=== PATIENT | female | born 1965 | race Caucasian/White ===

== ENCOUNTER 2020-10-01 15:59 | Emergency (ER) | payer OTHER ==
[~2020-10-01] VITALS: Ht 165.1 cm; Wt 95.7 kg
[~2020-10-01 15:59] MED LIST: CLONIDINE HCL0.2 M2; IBUPROFEN 800800 M1 PO; PRILOSEC 20 MG20 MG; XANAX XR1 MG
[2020-10-01] MEDS ORDERED: TOPROL XL100 MG PO (16:19)
[2020-10-01] MEDS ORDERED: AMIODARONE HCL400 MG PO (16:20)
[2020-10-01] MEDS ORDERED: ASA81BEC PO (16:20)
[2020-10-01] MEDS ORDERED: IRON18 M1 PO (16:20)
[2020-10-01] MEDS ORDERED: VITAMIN D31 ML (16:20)
[2020-10-01] MEDS ORDERED: LASIX 40 MG TAB40 MG PO (16:20)
[2020-10-01] MEDS ORDERED: BISOPROLOL FUMA10 MG PO (16:21)
[2020-10-01 16:41] LABS: ABSOLUTE BASOPHILS 0.1 thou/uL (0.0-0.2); ABSOLUTE EOSINOPHILS 0.4 thou/uL (0.0-0.7); ABSOLUTE MONOCYTES 0.5 thou/uL (0.0-1.2); ABSOLUTE NEUTROPHILS 3.1 thou/uL (1.6-8.1); BASOPHILS 1.1 %; EOSINOPHILS 6.7 %; HEMATOCRIT 39.7 % (37.0-47.0); LYMPHOCYTES 32.7 %; MCH 28.9 pg (26.0-34.0); MCHC 32.8 g/dL (28.0-37.0); MONOCYTES 8.4 %; MPV 7.2 fl. (7.2-11.1); NUCLEATED RBCS 0 /100WBC; PLATELET COUNT* 246 thou/uL (150-400); POLYS 51.1 %; RBC 4.52 mil/uL (4.20-5.00); RDW-CV 15.9 % (10.5-14.5); WBC 6.1 thou/uL (4.0-11.0)
[2020-10-01 16:51] LABS: CALCIUM 8.7 mg/dL (8.5-10.1); CREATININE 1.4 mg/dL (0.6-1.3); POTASSIUM 3.9 mmol/L (3.5-5.1)
[2020-10-01 17:02] LABS: ALBUMIN 3.3 g/dL (3.4-5.0); TOTAL BILIRUBIN 0.1 mg/dL (<0.1-1.0); TOTAL PROTEIN 7.3 g/dL (6.4-8.2)
[2020-10-01 17:42] LABS: URINE BILIRUBIN NEGATIVE (Negative); URINE BLOOD NEGATIVE (Negative); URINE CLARITY CLEAR; URINE COLOR YELLOW; URINE GLUCOSE-RANDOM NEGATIVE (Negative); URINE KETONES NEGATIVE (Negative); URINE LEUKOCYTES-REFLEX NEGATIVE (Negative); URINE NITRITE-REFLEX NEGATIVE (Negative); URINE PROTEIN NEGATIVE (Negative); URINE SPECIFIC GRAVITY 1.015 (1.005-1.030); URINE UROBILINOGEN 0.2 E.U./dl (0.2-1.0)
[2020-10-01 19:08] VITALS: BP 145/95
--- NOTE | 2020-10-02 09:03 | EKG ---
[place] [address] ELECTROCARDIOGRAM REPORT Name: MAYURI SHAFFER Room: [facility]#: [id number] Admission: 10/01/20 Attend Phys: Discharge: 10/01/20 Date of : 63 Date of Service: 10/01/201801 Report #: [id number] THIS REPORT FOR: //name// [facility] ED Test Date: 2020-10-01 Test Time: 18:02:27 Pat Name: MAYURI SHAFFER Department: Room: Gender: Job Coach: CD : 1965 Requested By: Mary Diamond Order Number: [id number] MD: Zhang Sue Measurements Intervals [place] Rate: 74 P: 41 VT: 176 QRS: 37 QRSD: 186 T: 193 QT: 436 QTc: 484 Interpretive Statements Sinus rhythm Probable left atrial enlargement IVCD, consider atypical RBBB ST-T wave changes, consider ischemia Anterior Q waves, possibly due to LVH Artifact in lead(s) II,III,aVR,aVL,aVF and baseline wander in lead(s) II,III,aVR,aVL,aVF No previous ECG available for comparison Electronically Signed On 10-02-2020 9:03:37 CDT by Zhang Sue [email or web address] <ELECTRONICALLY SIGNED> By: Zhang Sue MD, [facility] 10/02/20902 01 01 Zhang Sue MD, [facility] /EPI
== END 2020-10-01 19:09 | disposition home or self-care (01) ==
LOC: M.ERS 15:59
PROVIDERS: Nurse Practitioner Family
DX: K57.30 Diverticulosis of large intestine without perforation or abscess without bleeding (principal); D18.09 Hemangioma of other sites; J84.10 Pulmonary fibrosis, unspecified; Z90.49 Acquired absence of other specified parts of digestive tract; Z88.0 Allergy status to penicillin